=== PATIENT | male | born 1990 | race Caucasian/White ===

== ENCOUNTER 2017-07-06 12:58 | Observation (INO) | payer MEDICAID, SELFPAY ==
[2017-07-06 13:14] VITALS: BP 116/68; PULSE 88; RESP 16; TEMP 36.8
[2017-07-06 13:18] VITALS: BMI 20.9
--- NOTE | 2017-07-06 13:58 | PCM.HP.STD ---
Problem List (1) Opiate withdrawal Status: Acute (2) Seizure Status: Chronic Comment: once when he was 16 with no identifiable cause. History of Present Illness Date of Admission: 07/06/17 Chief Complaint: heroin withdrawal The patient is a 26 year old M who has been injecting heroin but over the past week has been snorting it. Last use was 1900 yesterday. Since then, he has been having rhinitis, abdominal cramps, restless legs. Patient presented to [facility] and had a calculated CINA of 14. [] Past Medical History Past Medical History (Chronic Problems): Chronic Problems Seizure (Chronic) once when he was 16 with no identifiable cause. Allergies Sulfa (Sulfonamide Antibiotics) Adverse Reaction (Verified 07/06/17 13:29) Rash Home Medications: Ambulatory Orders Medication Instructions Recorded No Known/Unobtainable [No Known 07/06/17 Home Medications] Smoking Status: Heavy Smoker (>10/day) Tobacco Use: Cigarettes Alcohol: Rare Drugs: Cocaine - 2-3 times per month, Heroin, Marijuana - 2-3 times per week - *Family History Maternal History Items: - - Hypothyroid Paternal History Items: - - due to suicide Review of Systems Constitutional: Denies: Anorexia, Chills, Fever Eyes: Denies: Blurred vision, Double vision HEENT: Reports: - - Rhinitis. Denies: Head Aches, Sinus Congestion, Sinus Drainage Cardiovascular: Denies: Chest Pain, Palpitations Respiratory: Denies: Cough, Shortness of breath at rest, Sputum production Gastrointestinal: Reports: -. Denies: Nausea - Abdominal cramps, Vomiting Genitourinary: Denies: Dysuria Musculoskeletal: Denies: Joint Pain, Joint Tenderness Skin: Denies: Rash, Wounds Psychiatric: Denies: Anxiety, Depression Hematologic/ Lymphatic: Denies: Easy Bruising, Easy Bleeding VTE Information - Inpt Only VTE Present on Admission: No Patient Problems: Active and Suspected Problems Opiate withdrawal (Acute) - Physical Exam General: Alert, Cooperative, No apparent distress HEENT: Atraumatic, Normocephalic Neck: No Nodes, Thyroid Normal Size and Texture Lungs: Clear to auscultation, Normal air movement, No rhonchi, No wheeze Cardiovascular: Regular rate, Regular Rhythm, Normal S1, Normal S2, No murmurs Abdomen: Bowel Sounds Present, Soft, Non Tender, Non-Distended, No Hepato-splenomegaly Extremities: No clubbing, No cyanosis, No edema, No Calf Tenderness Skin: No rashes, No breakdown Psych/Mental Status: Normal Affect, Appropriate Vital Signs Temp Pulse Resp BP Pulse Ox 36.8 C 88 16 116/68 07/06/17 13:14 07/06/17 13:14 07/06/17 13:14 07/06/17 13:14 Weight: 70 kg Body Mass Index (BMI) 20.9 Assessment/Plan Active and Suspected Problems Opiate withdrawal (Acute) 1. Acute heroin withdrawal: And will be on the medical stabilization protocol for opiates with Subutex. Additionally patient will have other agents to help him out with his other somatic complaints. Patient was informed that this will be a 3 day taper and his last dose will be the morning of the fifth. After which, [facility] will transition patient to his outpatient therapy.
--- NOTE | 2017-07-06 14:04 | HP.PCM_ITS ---
Problem List (1) Opiate withdrawal Status: Acute (2) Seizure Status: Chronic Comment: once when he was 16 with no identifiable cause. History of Present Illness Date of Admission: 07/06/17 Chief Complaint: heroin withdrawal The patient is a 26 year old M who has been injecting heroin but over the past week has been snorting it. Last use was 1900 yesterday. Since then, he has been having rhinitis, abdominal cramps, restless legs. Patient presented to [facility] and had a calculated CINA of 14. [] Past Medical History Past Medical History (Chronic Problems): Chronic Problems Seizure (Chronic) once when he was 16 with no identifiable cause. Allergies Sulfa (Sulfonamide Antibiotics) Adverse Reaction (Verified 07/06/17 13:29) Rash Home Medications: Ambulatory Orders Medication Instructions Recorded No Known/Unobtainable [No Known 07/06/17 Home Medications] Smoking Status: Heavy Smoker (>10/day) Tobacco Use: Cigarettes Alcohol: Rare Drugs: Cocaine - 2-3 times per month, Heroin, Marijuana - 2-3 times per week - *Family History Maternal History Items: - - Hypothyroid Paternal History Items: - - due to suicide Review of Systems Constitutional: Denies: Anorexia, Chills, Fever Eyes: Denies: Blurred vision, Double vision HEENT: Reports: - - Rhinitis. Denies: Head Aches, Sinus Congestion, Sinus Drainage Cardiovascular: Denies: Chest Pain, Palpitations Respiratory: Denies: Cough, Shortness of breath at rest, Sputum production Gastrointestinal: Reports: -. Denies: Nausea - Abdominal cramps, Vomiting Genitourinary: Denies: Dysuria Musculoskeletal: Denies: Joint Pain, Joint Tenderness Skin: Denies: Rash, Wounds Psychiatric: Denies: Anxiety, Depression Hematologic/ Lymphatic: Denies: Easy Bruising, Easy Bleeding VTE Information - Inpt Only VTE Present on Admission: No Patient Problems: Active and Suspected Problems Opiate withdrawal (Acute) - Physical Exam General: Alert, Cooperative, No apparent distress HEENT: Atraumatic, Normocephalic Neck: No Nodes, Thyroid Normal Size and Texture Lungs: Clear to auscultation, Normal air movement, No rhonchi, No wheeze Cardiovascular: Regular rate, Regular Rhythm, Normal S1, Normal S2, No murmurs Abdomen: Bowel Sounds Present, Soft, Non Tender, Non-Distended, No Hepato- splenomegaly Extremities: No clubbing, No cyanosis, No edema, No Calf Tenderness Skin: No rashes, No breakdown Psych/Mental Status: Normal Affect, Appropriate Vital Signs Temp Pulse Resp BP Pulse Ox 36.8 C 88 16 116/68 07/06/17 13:14 07/06/17 13:14 07/06/17 13:14 07/06/17 13:14 Weight: 70 kg Body Mass Index (BMI) 20.9 Assessment/Plan Active and Suspected Problems Opiate withdrawal (Acute) 1. Acute heroin withdrawal: * And will be on the medical stabilization protocol for opiates with Subutex. Additionally patient will have other agents to help him out with his other somatic complaints. Patient was informed that this will be a 3 day taper and his last dose will be the morning of the fifth. After which, [facility] will transition patient to his outpatient therapy.
[2017-07-06] MEDS: cloNIDine HCl 0.1 MG Tablet 0.2 MG PO (14:16)
[2017-07-06] MEDS: Dicyclomine 10 MG Capsule 20 MG PO ×2 (14:17→22:32)
[2017-07-06] MEDS: Carbidopa/Levodopa 25/100 Tablet PO ×2 (14:17→22:32)
[2017-07-06] MEDS: Buprenorphine HCl 2 MG TAB.SUBL SL ×2 (14:17→22:27)
[2017-07-06 14:24] LABS: Amphetamine Urine VISTA NEGATIVE (<1000 ng/mL); Barbiturate Urine VISTA NEGATIVE (< 200 ng/mL); Benzodiazepine Urine VISTA NEGATIVE (< 200 ng/mL); Cocaine Urine VISTA POSITIVE (< 300 ng/mL); Ecstacy Urine VISTA NEGATIVE (< 500 ng/mL); Methadone Urine VISTA NEGATIVE (< 300 ng/mL); PCP Urine VISTA NEGATIVE (< 25 ng/mL); THC Urine VISTA POSITIVE (< 50 ng/mL); Vista UDS pH Range 7
[2017-07-06 14:40] LABS: Absolute Lymphocyte Count 1.39 X10^3/ul (0.83-4.51); Absolute Neutrophil Count 5.4 X10^3/uL (2.0-7.7); Basophil# 0.02 X10^3/uL; Basophil% 0.3 % (0-1); Eosinophil# 0.11 X10^3/uL; Eosinophils% 1.5 % (0-5); Hematocrit 44.5 % (40-54); Hemoglobin 14.4 g/dl (13.0-16.5); Lymphocyte # 1.39 X10^3/ul (4.0); Lymphocyte % 18.7 % (19-41); Mean Corp Hgb Conc 32.4 g/gl (32-36); Mean Corpuscular Hgb 28.5 pg (27.0-32.0); Mean Corpuscular Volume 87.9 fL (80-94); Mean Platelet Vol. 10.1 fl (6.2-12.0); Monocyte# 0.51 X10^3/uL; Monocyte% 6.9 % (0-10); Neutrophil # 5.38 X10^3/uL (2.7-7.7); Neutrophil % 72.5 % (47-70); Platelet Count 196 K/mm3 (150-450); RBC Distribution Width CV 14.2 % (11.6-14.6); RBC Distribution Width SD 45.2 fl (35.1-43.9); Red Blood Count 5.06 M/mm3 (4.6-6.2); White Blood Count 7.4 K/mm3 (4.4-11.0)
[2017-07-06 14:41] LABS: POSITIVE COUNT NO; POSITIVE DIFFERENTIAL NO; POSITIVE MORPHOLOGY NO
[2017-07-06 15:00] LABS: AST(SGOT) 72 U/L (15-37); Alanine Aminotransfer ALT/SGPT 183 U/L (12-78); Albumin, Serum 3.7 g/dL (3.4-5.0); Alkaline Phosphatase 70 U/L (45-117); Anion Gap 5 (5-15); BUN 6 mg/dL (7-18); BUN/Creat Ratio 6.8 RATIO (10-20); Calcium,Total 8.6 mg/dL (8.5-10.1); Chloride 106 mmol/L (98-107); Creatinine, Serum 0.88 mg/dL (0.70-1.30); EST Glomerular Filtration Rate 109 mL/min (>60); Est Glom Filt Rate - Afr Amer 131 mL/min (>60); Estimated Creatinine Clearance 123.74 ml/min; Globulin 3.6 g/dL (2.3-3.5); Glucose 98 mg/dL (70-110); Potassium 4.1 mmol/L (3.5-5.1); Protein, Total 7.3 g/dL (6.4-8.2); Sodium Level 140 mmol/L (136-145)
[2017-07-06 17:20] VITALS: BP 92/61; PULSE 70; RESP 18; TEMP 37.1
[2017-07-06] MEDS: Methocarbamol 750 MG Tablet PO (17:32)
[2017-07-06] MEDS: cloNIDine HCl 0.1 MG Tablet PO ×2 (17:32→22:33)
[2017-07-06] MEDS: Ibuprofen 400 MG Tablet 800 MG PO (17:32)
--- NOTE | 2017-07-06 17:48 | EKG12_ITS ---
Test Reason : Blood Pressure : / mmHG Vent. Rate : 075 BPM Atrial Rate : 075 BPM P-R Int : 158 ms QRS Dur : 118 ms QT Int : 408 ms P-R-T Axes : 064 064 041 degrees QTc Int : 455 ms Normal sinus rhythm [id number] Confirmed by ARNULFO FELIX, YVONNE ([id number]), website/blog editor DANNIE BUTLER ([id number]) on 07/20/2017 2:37:00 PM Referred By: Confirmed By:YVONNE ARREDONDO MD
[2017-07-06 22:23] VITALS: BP 109/70; PULSE 64; RESP 18; TEMP 36.4
[2017-07-06] MEDS: Acetaminophen 325 MG Tablet 650 MG PO (22:32)
[2017-07-07 02:41] VITALS: BP 92/54; PULSE 65; RESP 16; TEMP 36.6
[2017-07-07 06:21] VITALS: BP 103/64; PULSE 61; RESP 16; TEMP 36.4
[2017-07-07] MEDS: Buprenorphine HCl 2 MG TAB.SUBL SL ×3 (06:26→21:33)
[2017-07-07] MEDS: cloNIDine HCl 0.1 MG Tablet PO ×3 (06:26→21:33)
[2017-07-07] MEDS: Carbidopa/Levodopa 25/100 Tablet PO ×2 (06:26→14:41)
[2017-07-07] MEDS: Methocarbamol 750 MG Tablet PO ×3 (06:26→21:33)
[2017-07-07 09:49] VITALS: BP 89/55; PULSE 65; RESP 16; TEMP 36.5
[2017-07-07] MEDS: Ibuprofen 400 MG Tablet 800 MG PO (09:56)
[2017-07-07] MEDS: Multivitamins,Ther W-Minerals Tablet 1 TABLET PO (09:56)
--- NOTE | 2017-07-07 10:31 | PN_ITS ---
Patient Problems: Active and Suspected Problems Opiate withdrawal (Acute) Subjective: Still the restless legs but overall improved. Tolerating diet no abdominal cramps. Vitals/I&O's: Vital Signs Temp Pulse Resp BP Pulse Ox 36.5 C 65 16 89/55 07/07/17 09:49 07/07/17 09:49 07/07/17 09:49 07/07/17 09:49 Weight: 70 kg Body Mass Index (BMI) 20.9 Intake and Output for Last 24 Hours 07/05/17 07/06/17 07/07/17 23:59 23:59 23:59 Intake Total 650 Balance 650 General: Alert, Cooperative, No apparent distress HEENT: Atraumatic, Normocephalic Neck: No Nodes, Thyroid Normal Size and Texture Lungs: Clear to auscultation, Normal air movement, No rhonchi, No wheeze Cardiovascular: Regular rate, Regular Rhythm, Normal S1, Normal S2, No murmurs Abdomen: Bowel Sounds Present, Soft, Non Tender, Non-Distended, No Hepato- splenomegaly Extremities: No edema, No Calf Tenderness Psych/Mental Status: Normal Affect, Appropriate Laboratory Results 07/06/17 13:40: Urine Opiates Screen NEGATIVE, Urine Methadone Screen NEGATIVE, Ur Barbiturates Screen NEGATIVE, Ur Phencyclidine Scrn NEGATIVE, Ur Amphetamines Screen NEGATIVE, U Methamphetamin-MDMA NEGATIVE, U Benzodiazepines Scrn NEGATIVE, Urine Cocaine Screen POSITIVE H, U Cannabinoids Screen POSITIVE H , Ur Drug Screen Comment 07/06/17 14:30: WBC 7.4, RBC 5.06, Hgb 14.4, Hct 44.5, MCV 87.9, MCH 28.5, MCHC 32.4, RDW 14.2, RDW Differential 45.2 H, Plt Count 196, MPV 10.1, Immature Gran % (Auto) 0.100, Neut % (Auto) 72.5 H, Lymph % (Auto) 18.7 L, [place] % (Auto) 6.9, Eos % (Auto) 1.5, Baso % (Auto) 0.3, Absolute Neuts (auto) 5.4, Absolute Lymphs (auto) 1.39, Total Counted Not Reportable 07/06/17 14:30: Sodium 140, Potassium 4.1, Chloride 106, Carbon Dioxide 29.0, Anion Gap 5, BUN 6 L, Creatinine 0.88, Estim Creat Clear Calc 123.74, Est GFR ( MDRD) Af Amer 131, Est GFR (MDRD) Non-Af 109, BUN/Creatinine Ratio 6.8 L, Glucose 98, Calcium 8.6, Total Bilirubin 0.60, AST 72 H, ALT 183 H, Alkaline Phosphatase 70, Total Protein 7.3, Albumin 3.7, Globulin 3.6 H, Albumin/ Globulin Ratio 1.0 07/06/17 14:30: Hep C Antibody RIBA Pending, Hep C RIBA Interpret Pending, Hepatitis C Comment Pending, HIV 1&2 Ag/Ab, 4th Gen Pending Current Medications Acetaminophen (Tylenol) 650 mg PO Q4H PRN PRN PRN Reason: Temp>99.1F Last Admin: 07/06/17 22:32 Dose: 650 mg Buprenorphine HCl (Buprenorphine Hcl) 4 mg SL Q8H TED PRN Reason: Taper Stop: 07/09/17 18:29 Last Admin: 07/07/17 06:26 Dose: 4 mg Carbidopa/Levodopa (Sinemet) 1 tablet PO Q8H PRN PRN PRN Reason: RESTLESSNESS Last Admin: 07/07/17 06:26 Dose: 1 tablet Clonidine (Catapres) 0.1 mg PO Q2H PRN PRN Reason: Hot/Cold Sweats or Anxiety Last Admin: 07/07/17 06:26 Dose: 0.1 mg Dicyclomine HCl (Bentyl) 20 mg PO Q6H PRN PRN PRN Reason: Abdomnial Discomfort Last Admin: 07/06/17 22:32 Dose: 20 mg Hydroxyzine Pamoate (Vistaril) 50 mg PO Q6H PRN PRN PRN Reason: Mild Anxiety (score 1/3) Last Admin: 07/07/17 09:56 Dose: 50 mg Ibuprofen (Motrin) 800 mg PO Q8H PRN PRN PRN Reason: Mild-Moderate Pain (1-5/10) Last Admin: 07/07/17 09:56 Dose: 800 mg Loperamide HCl (Imodium) 2 - 4 mg PO UD PRN PRN Reason: LOOSE STOOLS Methocarbamol (Methocarbamol) 750 mg PO 4X/DAY PRN PRN Reason: Muscle Aches Last Admin: 07/07/17 06:26 Dose: 750 mg Multivitamins/Minerals (Multivitamin With Minerals) 1 tablet PO DAILYCM TED Last Admin: 07/07/17 09:56 Dose: 1 tablet Nicotine (Nicoderm Cq (Pbkc)) 21 mg TRANSDERM. DAILY TED Last Admin: 07/06/17 17:34 Dose: 21 mg Ondansetron HCl (Zofran Odt) 4 mg PO Q6H PRN PRN PRN Reason: NAUSEA Assessment/Plan Active and Suspected Problems Opiate withdrawal (Acute) 1. Acute heroin withdrawal: * And will be on the medical stabilization protocol for opiates with Subutex. Additionally patient will have other agents to help him out with his other somatic complaints. Patient was informed that this will be a 3 day taper and his last dose will be the morning of the fifth. After which, [facility] will transition patient to his outpatient therapy. * HIV and hepatitis C studies pending.
[2017-07-07 14:34] VITALS: BP 107/61; PULSE 71; RESP 16; TEMP 36.8
[2017-07-07] MEDS: Dicyclomine 10 MG Capsule 20 MG PO ×2 (14:41→21:33)
--- NOTE | 2017-07-07 16:47 | CHAPLAIN ---
Type of Pastoral Visit _x__ Initial Visit ___ Follow-up Visit ___ On-call Visit ___ General Patient Visit ___ Spiritual Assessment ___ Family Conference ___ Bereavement ___ Rapid Response ___ Code Blue ___ Other (describe below) Pastoral Care Referral From _x__ Patient ___ Family ___ Nurse ___ Physician ___ Vice President Of Recruiting ___ Visualizer ___ Other (describe below) Sacrament/Intervention _x__ Active listening ___ Anointing ___ Scientology ___ Bereavement ___ Communion _x__ Roberta exploration ___ _x__ Life review _x__ Prayer ___ Reconciliation ___ Sacrament of Sick _x__ Supportive presence ___ Wedding ___ Other (describe below) Pastoral Comments patient was offered support and he accepted it from this chicken buyer; pt tells some of his life story and his life that 'fell apart' when his father committed suicide when pt was a teenager; 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
[2017-07-07 21:34] VITALS: BP 100/61; PULSE 60; RESP 18; TEMP 36.8
[2017-07-08 05:07] LABS: HIV 1/0/2 SCREEN 4TH GEN Non Reactive (Non Reactive); Hepatitis C Ab >11.0 s/co ratio (0.0-0.9)
[2017-07-08 05:50] VITALS: BP 100/56; PULSE 60; RESP 18; TEMP 36.6
[2017-07-08] MEDS: Carbidopa/Levodopa 25/100 Tablet PO ×2 (05:54→21:50)
[2017-07-08] MEDS: Methocarbamol 750 MG Tablet PO ×2 (05:54→21:50)
[2017-07-08] MEDS: cloNIDine HCl 0.1 MG Tablet PO (05:54)
[2017-07-08] MEDS: Buprenorphine HCl 2 MG TAB.SUBL SL ×2 (05:54→18:37)
[2017-07-08] MEDS: Acetaminophen 325 MG Tablet 650 MG PO (05:58)
[2017-07-08 08:30] VITALS: BP 99/58; PULSE 61; RESP 16; TEMP 36.8; O2SAT 98
[2017-07-08 08:31] VITALS: BP 99/58; PULSE 61; RESP 16; TEMP 36.8
[2017-07-08] MEDS: Multivitamins,Ther W-Minerals Tablet 1 TABLET PO (11:11)
--- NOTE | 2017-07-08 14:43 | PN_ITS ---
Patient Problems: Active and Suspected Problems Opiate withdrawal (Acute) Subjective: feeling better. Improved her restless legs and abdominal cramps. Vitals/I&O's: Vital Signs Temp Pulse Resp BP Pulse Ox 36.8 C 61 16 99/58 98 07/08/17 08:31 07/08/17 08:31 07/08/17 08:31 07/08/17 08:31 07/08/17 08:30 Oxygen Delivery Method Room Air Weight: 70 kg Body Mass Index (BMI) 20.9 Intake and Output for Last 24 Hours 07/06/17 07/07/17 07/08/17 23:59 23:59 23:59 Intake Total 650 Balance 650 General: Alert, Cooperative, No apparent distress HEENT: Atraumatic, Normocephalic Neck: No Nodes, Thyroid Normal Size and Texture Lungs: Clear to auscultation, Normal air movement, No rhonchi, No wheeze Cardiovascular: Regular rate, Regular Rhythm, Normal S1, Normal S2 Abdomen: Bowel Sounds Present, Soft, Non Tender, Non-Distended Extremities: No edema, No Calf Tenderness Current Medications Acetaminophen (Tylenol) 650 mg PO Q4H PRN PRN PRN Reason: Temp>99.1F Last Admin: 07/08/17 05:58 Dose: 650 mg Buprenorphine HCl (Buprenorphine Hcl) 2 mg SL Q12H TED PRN Reason: Taper Stop: 07/09/17 18:29 Last Admin: 07/08/17 05:54 Dose: 2 mg Carbidopa/Levodopa (Sinemet) 1 tablet PO Q8H PRN PRN PRN Reason: RESTLESSNESS Last Admin: 07/08/17 05:54 Dose: 1 tablet Clonidine (Catapres) 0.1 mg PO Q2H PRN PRN Reason: Hot/Cold Sweats or Anxiety Last Admin: 07/08/17 05:54 Dose: 0.1 mg Dicyclomine HCl (Bentyl) 20 mg PO Q6H PRN PRN PRN Reason: Abdomnial Discomfort Last Admin: 07/07/17 21:33 Dose: 20 mg Hydroxyzine Pamoate (Vistaril) 50 mg PO Q6H PRN PRN PRN Reason: Mild Anxiety (score 1/3) Last Admin: 07/07/17 09:56 Dose: 50 mg Ibuprofen (Motrin) 800 mg PO Q8H PRN PRN PRN Reason: Mild-Moderate Pain (1-5/10) Last Admin: 07/07/17 09:56 Dose: 800 mg Loperamide HCl (Imodium) 2 - 4 mg PO UD PRN PRN Reason: LOOSE STOOLS Methocarbamol (Methocarbamol) 750 mg PO 4X/DAY PRN PRN Reason: Muscle Aches Last Admin: 07/08/17 05:54 Dose: 750 mg Multivitamins/Minerals (Multivitamin With Minerals) 1 tablet PO DAILYCM TED Last Admin: 07/08/17 11:11 Dose: 1 tablet Nicotine (Nicoderm Cq (Pbkc)) 21 mg TRANSDERM. DAILY TED Last Admin: 07/08/17 11:10 Dose: 21 mg Ondansetron HCl (Zofran Odt) 4 mg PO Q6H PRN PRN PRN Reason: NAUSEA Assessment/Plan Active and Suspected Problems Opiate withdrawal (Acute) 1. Acute heroin withdrawal: * And will be on the medical stabilization protocol for opiates with Subutex. Additionally patient will have other agents to help him out with his other somatic complaints. Patient was informed that this will be a 3 day taper and his last dose will be the morning of the fifth. After which, [facility] will transition patient to his outpatient therapy. * HIV and hepatitis C studies pending.
--- NOTE | 2017-07-08 15:47 | CHAPLAIN ---
Type of Pastoral Visit ___ Initial Visit _x__ Follow-up Visit ___ On-call Visit ___ General Patient Visit ___ Spiritual Assessment ___ Family Conference ___ Bereavement ___ Rapid Response ___ Code Blue ___ Other (describe below) Pastoral Care Referral From _x__ Patient ___ Family ___ Nurse ___ Physician ___ Real Estate Operations Manager ___ Tennis Desk Team Member ___ Other (describe below) Sacrament/Intervention _x__ Active listening ___ Anointing ___ Yazidism ___ Bereavement ___ Communion _x__ Roberta exploration ___ _x__ Life review _x__ Prayer ___ Reconciliation ___ Sacrament of Sick _x__ Supportive presence ___ Wedding ___ Other (describe below) Pastoral Comments patient invited this boxer operator for this follow up; pt speaks more about his family and his admission of wrongs in past; pt reveals father was an addict but mother is a strong believer in Ant; pt expresses happiness that he is going to a [facility] rehab for one year and desires to get well; pt requests a Bible be given to him; pt prays for himself and expresses gratitude for the support in this treatment/detox time; pt expresses that he sees how God is answering prayer for his treatment and recovery
[2017-07-08 18:00] VITALS: BP 99/59; PULSE 78; RESP 18; TEMP 37
[2017-07-08 21:44] VITALS: BP 101/61; PULSE 73; RESP 18; TEMP 36.8
[2017-07-09 05:37] VITALS: BP 105/68; PULSE 61; RESP 18; TEMP 36.6
[2017-07-09] MEDS: Buprenorphine HCl 2 MG TAB.SUBL SL (05:38)
[2017-07-09 07:41] VITALS: BP 101/56; PULSE 67; RESP 16; TEMP 36.2; O2SAT 99
--- NOTE | 2017-07-09 07:49 | PCM.DC ---
- Discharge Diagnoses Current Active Problems: Current Active and Chronic Problems Opiate withdrawal (Acute) Seizure (Chronic) once when he was 16 with no identifiable cause. You will use the following diet at home:: No restrictions Your food should be the consistency of: Regular Your liquids should be the consistency of: Regular/Thin Discharge Activity: Return to Normal Activity Allergies/Adverse Reactions: Allergies Sulfa (Sulfonamide Antibiotics) Adverse Reaction (Verified 07/06/17 13:29) Rash Medications to take at Discharge No Known/Unobtainable [No Known Home Medications] 07/06/17
--- NOTE | 2017-07-09 07:54 | DS.PCM_ITS ---
Discharge Date and Diagnosis - Problem List Patient Problems: Active and Suspected Problems Opiate withdrawal (Acute) Date of Admission: 07/06/17 Date of Discharge: 07/09/17 - Primary Discharge Diagnosis Active and Suspected Problems Opiate withdrawal (Acute) - Secondary Discharge Diagnosis Chronic Problems Seizure (Chronic) once when he was 16 with no identifiable cause. Hospital Course and Treatment Operations: None Procedures: None Summary of Care Provided: The patient is a 26 year old M presents for withdrawal from [facility]. Patient was initiated on the Subutex withdrawal taper. Patient did well. Patient is also treated for other somatic complaints, such as abdominal cramps and restless legs. Patient has done well. Patient received his last dose at 06 30 today. Patient be discharged through to home and further outpatient management will be [facility] by [facility]. Additionally, patient was checked for hepatitis C as well as HIV. Patient's hepatitis C antibody was positive, however the RIBA was negative which indicates a false positive result. Patient is HIV was negative. Physical exam Vital Signs Height 1.83 m Weight: 70 kg Weight in Pounds 154.3 lbs Pulse Ox 99 Temperature 36.2 C Pulse Rate 67 Respiratory Rate 16 Blood Pressure 101/56 Blood Pressure Position Semi-Fowlers It is no acute distress and afebrile. Nontoxic. Head is atraumatic and normocephalic.] Discharge Diet: No Restrictions Discharge Activity: Return to Normal Activity Home Medications: Medications to take at Discharge No Known/Unobtainable [No Known Home Medications] 07/06/17 Disposition: Home Minutes spent on discharge:: 25 Patient Condition:: Good Meaningful Use Info Meaningful Use Diagnoses (Choose all that apply): None applicable
[2017-07-09] MEDS: Multivitamins,Ther W-Minerals Tablet 1 TABLET PO (08:35)
== END 2017-07-09 09:55 | disposition home or self-care (01) | DRG 773 ==
LOC: MS2 12-07 08:46
DX: F11.23 Opioid dependence with withdrawal (principal); F17.210 Nicotine dependence, cigarettes, uncomplicated
CPT/HCPCS: 80053; 80307; 85025; 86703; 86803; 86804; 93005; 99218; G0378; G0379